=== PATIENT | female | born 1950 | race American Indian/Alaskan Native ===

== ENCOUNTER 2021-09-20 09:34 | Emergency (ER) | payer MEDICARE ==
--- NOTE | 2021-09-20 09:48 | Emergency Department Report ---
ED CPR HPI - General Chief Complaint: Cardiac Arrest/CPR Stated Complaint: CARDIAC ARREST Time Seen by Provider: 09/20/21 09:47 Source: EMS (Verbal report received from emergency medical services. EMS documentation not available at time of chart dictation ), RN notes reviewed Mode of arrival: Stretcher Limitations: Altered Mental Status, Physical Limitation - History of Present Illness Initial Comments: The patient is a 72-year-old female. She is not known to myself previously. She is brought to the hospital by emergency medical services as an ou [id number] nontraumatic cardiac arrest. Patient arrives with a supraglottic airway in place, GCS of 3, receiving CPR from EMS. History obtained from EMS. EMS states the patient was at dialysis and collapsed. It is not known if bystander CPR was started. EMS reports that fire department was on the scene upon their arrival. EMS reports that while the patient has been in their care, for about 10 to 15 minutes, she has been pulseless, has been receiving CPR, and standard ACLS medications. EMS states that at no point in time, as she had a shockable rhythm. Upon arrival to this emergency room, the patient is in a coma with a GCS of 3. Supraglottic airway is dislodged, and subsequently removed. Patient receives [id number] ventilation. Her pupils are fixed and dilated and do not react to light. Dialysis catheter is in the right upper extremity, removed, and pressure is applied to the right upper extremity. Patient received standard ACLS interventions, including aggressive CPR, and standard ACLS medications. Unfortunately, pulses could not be reobtained or obtained at all, despite vigorous resuscitative efforts. Bedside cardiac ultrasound demonstrates no ventricular activity. After a prolonged resuscitation, resuscitative efforts were terminated. Patient's family is subsequently informed. Complaint: collapsed during rest (Patient was receiving hemodialysis) -: unknown Place: other (Hemodialysis) Initial Findings in the Field: PEA ROSC in the Field: No Associated Injuries: No Treatments Prior to Arrival: other airway device, chest compressions, epinephrine mgs # ED Review of Systems ROS: Stated complaint: CARDIAC ARREST Other details as noted in HPI Comment: Unobtainable due to pts medical conditions ED Physical Exam - General Limitations: Altered Mental Status, Physical Limitation General appearance: obtunded - Head Head exam: Present: normocephalic - Eye Eye exam: Present: normal appearance, other (Pupils dilated and do not react to). Absent: nystagmus - ENT ENT exam: Present: normal exam, normal orophraynx, mucous membranes moist, normal external ear exam - Neck Neck exam: Present: normal inspection. Absent: tenderness, meningismus - Respiratory Respiratory exam: Present: other (Right-sided thoracic vascular access catheter noted. The patient is not breathing) - Cardiovascular Cardiovascular Exam: Present: other (Patient is pulseless). Absent: systolic murmur, diastolic murmur, rubs, gallop - GI/Abdominal GI/Abdominal exam: Present: soft. Absent: pulsatile mass - Extremities Exam Extremities exam: Present: normal inspection. Absent: pedal edema, calf tenderness - Back Exam Back exam: Present: normal inspection - Neurological Exam Neurological exam: Present: altered, other (GCS of 3) - Psychiatric Psychiatric exam: Present: other (The patient is nonverbal) - Skin Skin exam: Present: warm, dry, intact, normal color. Absent: rash ED Medical Decision Making - Medical Decision Making Differential diagnosis, including but not limited to: Hyperkalemia, pulmonary embolism, anemia, acute coronary syndrome Critical care attestation.: If time is entered above; I have spent that time in minutes in the direct care of this critically ill patient, excluding procedure time. ED Disposition Clinical Impression: Cardiac arrest, ESRD (end stage renal disease) Disposition: 20 Is pt being admited?: No Does the pt Need Aspirin: No Condition: Undetermined Referrals: [facility] [Other] - 3-5 Days
[2021-09-20] MEDS ORDERED: CALCIUM CHLORIDE 1,000 MG/10 ML SYRINGE IV ONE (11:11)
[2021-09-20] MEDS ORDERED: D5W IV ONE (11:11)
[2021-09-20] MEDS ORDERED: EPINEPHrine 1 MG/10 ML SYRINGE ONE (11:11)
== END 2021-09-20 12:41 ==
LOC: ED 09:34
DX: I46.9 Cardiac arrest, cause unspecified (principal); N18.6 End stage renal disease; Z99.2 Dependence on renal dialysis
CPT/HCPCS: 92950; 99285; J0171; J3490